=== PATIENT | female | born 1960 | race Caucasian/White ===

== ENCOUNTER 2020-07-23 20:29 | Emergency (ER) | payer MEDICAID, SELFPAY ==
[~2020-07-23] VITALS: Ht 157.5 cm; Wt 69.9 kg
[2020-07-23 20:40] VITALS: BP_SYST 123
--- NOTE | 2020-07-23 20:40 | NUR ---
PT TO REMAIN IN AMBULANCE UNTIL ER BED BECOMES AVAILABLE
--- NOTE | 2020-07-23 20:40 | NUR ---
DR. CHAVEZ IN AMBULANCE TO EVALUATE PT STATUS
[2020-07-23] MEDS ORDERED: AZIT500T3 PO ×2 (21:56→22:14)
[2020-07-23] MEDS ORDERED: ALBMDI INH ×2 (21:56→22:14)
[2020-07-23] MEDS ORDERED: ZINC220T4 PO ×2 (21:56→22:14)
[2020-07-23] MEDS ORDERED: DEC1 PO ×2 (21:56→22:14)
[2020-07-23] MEDS ORDERED: HYDR200T80 PO ×4 (21:56→22:14)
[2020-07-23 22:22] VITALS: BP_SYST 123
--- NOTE | 2020-07-23 22:22 | NUR ---
Patient given written and verbal discharge instructions and verbalizes understanding. ER MD FINE discussed with patient the results and treatment provided. Patient in stable condition. ID arm band removed. Rx of ZINC, AZITHROMYOCIN, HYDROXYCHLORQUINE given. Opportunity for questions provided and answered. Medication side effect fact sheet provided.
== END 2020-07-23 22:22 | disposition home or self-care (01) ==
LOC: SED 20:29
DX: U07.1 COVID-19 (principal); R07.89 Other chest pain; Z79.899 Other long term (current) drug therapy
CPT/HCPCS: 36600; 71045; 82803-TC; 99284